=== PATIENT | female | born 1960 | race Caucasian/White ===

== ENCOUNTER 2017-10-19 09:32 | Emergency (ER) | payer OTHER ==
[~2017-10-19] VITALS: Ht 167.6 cm; Wt 64.5 kg
[2017-10-19] MEDS ORDERED: [UNRECOGNIZED DRUG - OTHER] PO (09:38)
[2017-10-19] MEDS ORDERED: ORENCIA125 MG/ML SC (09:38)
[2017-10-19] MEDS ORDERED: ASPIRIN E.C. 8181 MG PO (09:38)
[2017-10-19] MEDS ORDERED: TREXALL5 MG (09:38)
[2017-10-19 11:22] VITALS: BP 148/66
== END 2017-10-19 11:01 | disposition home or self-care (01) ==
LOC: ED 09:32
DX: H10.9 Unspecified conjunctivitis (principal); Z79.899 Other long term (current) drug therapy; Z79.82 Long term (current) use of aspirin